=== PATIENT | male | born 1975 | race Caucasian/White ===

== ENCOUNTER 2016-12-01 17:58 | Emergency (ER) | payer MEDICARE, MEDICAID ==
[~2016-12-01] VITALS: Ht 180.3 cm; Wt 89.4 kg
[~2016-12-01 17:58] MED LIST: CIPRO 500MG TA500 MG PO; DILANTIN 100MG100 MG PO; FLEXERIL10 MG PO; NAPROSYN 500MG500 MG PO; NOMEDS; PHENERGAN 25MG.25 M1 PO; PROTONIX 40MG T40 MG PO; ROBAXIN-750750 MG PO; STERAPRED DS10 MG PO
--- NOTE | 2016-12-01 19:10 | Urgent Treatment Center Report ---
History of Present Issue Date/Time Seen by Provider 12/01/16 8432 Visit Reason Pt arrived:Walked Presenting Problem:NAUSEATED FOR FOR 1 WEEK. Location if Accident: Onset of symptoms date/time:/ or onset unknown for:MEDICAL HX UNKNOWN Have you (or family members/close friends) recently traveled outside the [place]? N If Yes, where/when: Have you had exposure to infectious disease within the past month? TB? Other? Specify: Patient states that he has had nausea and abdominal pain on and off for over a week and is currently taking Flagyl and Cipro for DIverticulitis ALLERGIES Coded Allergies: aspirin (Intermediate, 12/01/16) hydrocodone (Intermediate, 12/01/16) Home Medications Active Scripts Ciprofloxacin HCl (Cipro 500MG TAB) 500 MG PO BID #10 TAB Prov: 08/07/14 Pantoprazole Sodium (Protonix 40MG TAB) 40 MG PO DAILY #30 TAB Prov: 08/07/14 Reported Medications Phenytoin Sodium (Dilantin 100MG CAP) 300 MG PO BID History Medical History General Angina: No MA: No Hypertension? No Hyperlipidemia? No CHF? No COPD? No Asthma? No Hernia? No CVA? No Seizures? Yes Diabetes? No UTI? No Stones? No GB Disease: No Hepatitis? No Cataracts? No Glaucoma? No MRSA? No TB? No Cancer? No Immunization HX DT/Tetanus NOT SURE Surgical Hx Previous Surgery?Y ORAL SURGERY Social History Smoking Hx Smoker: Current Every Day Smoker Tobacco: Yes Type Cigarettes Packs/day < 1 Pack Alcohol Alcohol: No Review of Systems All Other Systems Reviewed and Negative Physical Exam Vital Signs Vital Signs Date Time Temp Pulse Resp B/P Pulse O2 O2 Flow FiO2 Ox Delivery Rate 12/01 1851 98.6 104 20 129/90 96 General Appearance normal appearance, no apparent distress Respiratory Status Yes: trachea midline, chest symmetrical, non tender chest. No: respiratory distress. Cardiovascular normal exam, no peripheral edema, no gallop, no JVD, no murmur, no rub Gastrointestinal normal bowel sounds, normal exam, Patient currently being treated for diverticulitis, still eating seeded foods, Neurologic alert, normal exam Medical Decision Making LABS/Meds/Orders Pt receiving controlled substance in ED? No Progress [facility] Progress Notes Date 12/01/16 Time 1906 Comment Patient informed to continue taking medication as prescribed, to avoid seeded foods and follow his family physicians treatment recommedations Departure Departure Time of Disposition 1907 Disposition DC Home or Self Care(routine) Clinical Impression Primary Impression: Abdominal pain Qualifiers: Abdominal location: unspecified location Qualified Code: R10.9 - Unspecified abdominal pain Condition STABLE Referrals MERRY MULLER (Family) Patient Instructions DI for Diverticulitis, DI for Diverticulosis Discharge Counseling Counseled pt/family regarding diagnosis, home care, follow up needs Comments Patient educated on the effects of seeded foods in someone with diverticulitis, educated to continue family doctors treatment regimen, at 1906
--- NOTE | 2016-12-01 19:10 | Urgent Treatment Center Report ---
History of Present Issue Date/Time Seen by Provider 12/01/16 1262 Visit Reason Pt arrived:Walked Presenting Problem:NAUSEATED FOR FOR 1 WEEK. Location if Accident: Onset of symptoms date/time:/ or onset unknown for:MEDICAL HX UNKNOWN Have you (or family members/close friends) recently traveled outside the [place]? N If Yes, where/when: Have you had exposure to infectious disease within the past month? TB? Other? Specify: Patient states that he has had nausea and abdominal pain on and off for over a week and is currently taking Flagyl and Cipro for DIverticulitis ALLERGIES Coded Allergies: aspirin (Intermediate, 12/01/16) hydrocodone (Intermediate, 12/01/16) Home Medications Active Scripts Ciprofloxacin HCl (Cipro 500MG TAB) 500 MG PO BID #10 TAB Prov: 08/07/14 Pantoprazole Sodium (Protonix 40MG TAB) 40 MG PO DAILY #30 TAB Prov: 08/07/14 Reported Medications Phenytoin Sodium (Dilantin 100MG CAP) 300 MG PO BID History Medical History General Angina: No SD: No Hypertension? No Hyperlipidemia? No CHF? No COPD? No Asthma? No Hernia? No CVA? No Seizures? Yes Diabetes? No UTI? No Stones? No GB Disease: No Hepatitis? No Cataracts? No Glaucoma? No MRSA? No TB? No Cancer? No Immunization HX DT/Tetanus NOT SURE Surgical Hx Previous Surgery?Y ORAL SURGERY Social History Smoking Hx Smoker: Current Every Day Smoker Tobacco: Yes Type Cigarettes Packs/day < 1 Pack Alcohol Alcohol: No Review of Systems All Other Systems Reviewed and Negative Physical Exam Vital Signs Vital Signs Date Time Temp Pulse Resp B/P Pulse O2 O2 Flow FiO2 Ox Delivery Rate 12/01 1851 98.6 104 20 129/90 96 General Appearance normal appearance, no apparent distress Respiratory Status Yes: trachea midline, chest symmetrical, non tender chest. No: respiratory distress. Cardiovascular normal exam, no peripheral edema, no gallop, no JVD, no murmur, no rub Gastrointestinal normal bowel sounds, normal exam, Patient currently being treated for diverticulitis, still eating seeded foods, Neurologic alert, normal exam Medical Decision Making LABS/Meds/Orders Pt receiving controlled substance in ED? No Progress [facility] Progress Notes Date 12/01/16 Time 1906 Comment Patient informed to continue taking medication as prescribed, to avoid seeded foods and follow his family physicians treatment recommedations Departure Departure Time of Disposition 1907 Disposition DC Home or Self Care(routine) Clinical Impression Primary Impression: Abdominal pain Qualifiers: Abdominal location: unspecified location Qualified Code: R10.9 - Unspecified abdominal pain Condition STABLE Referrals MERRY MULLER (Family) Patient Instructions DI for Diverticulitis, DI for Diverticulosis Discharge Counseling Counseled pt/family regarding diagnosis, home care, follow up needs Comments Patient educated on the effects of seeded foods in someone with diverticulitis, educated to continue family doctors treatment regimen, at 190
[2016-12-01 19:15] VITALS: BP 129/90
== END 2016-12-01 19:15 | disposition home or self-care (01) ==
LOC: UTC 17:58
DX: R10.30 Lower abdominal pain, unspecified (principal); Z72.0 Tobacco use; K57.32 Diverticulitis of large intestine without perforation or abscess without bleeding